=== PATIENT | male | born 1935 | race Caucasian/White ===

== ENCOUNTER → 2018-10-10 13:04 | Outpatient (CLI) | payer MEDICARE, OTHER, SELFPAY ==
[2018-10-14 20:12] LABS: PSA Free % 11 % (calc) (> 25); PSA, Total 10.6 ng/mL (< 4.1)
== END ==
PROVIDERS: PCP Family Medicine; Visit Provider Family Medicine
DX: R89.9 Unspecified abnormal finding in specimens from other organs, systems and tissues (principal)
CPT/HCPCS: 36415; 84153; 84154

== ENCOUNTER → 2019-04-21 11:08 | Outpatient (CLI) | payer MEDICARE, OTHER, SELFPAY ==
[2019-04-21 15:14] LABS: Appearance Urine UA SL CLOUDY; Bilirubin Urine UA NEGATIVE (NEGATIVE); Color Urine UA YELLOW; Glucose Urine UA NEGATIVE (Negative); Ketones Urine UA NEGATIVE (NEGATIVE); Leukocyte Esterase Urine UA 2+ (NEGATIVE); Nitrite Urine UA POSITIVE (Negative); Occult Blood Urine UA 1+ (Negative); Protein Urine UA TRACE (Negative); Urobilinogen Urine UA 0.2 E.U./dL (0.2); pH Urine UA 6.5 (4.5-8.0)
[2019-04-21 16:11] LABS: RBC Urine 1-5/HPF (0-5/HPF); WBC Urine 30-100/HPF (0-5/HPF)
[2019-04-21 16:12] LABS: Bacteria Urine Many (>30); Culture Indicated Urine Specimen Cultured
== END ==
PROVIDERS: Family Provider Family Medicine; PCP Family Medicine; Visit Provider Registered Nurse
DX: N30.90 Cystitis, unspecified without hematuria (principal)
CPT/HCPCS: 81001; 87077; 87086; 87186

== ENCOUNTER 2019-04-23 10:19 | Emergency (ER) | payer MEDICARE, OTHER, SELFPAY ==
[2019-04-23 10:23] VITALS: BP 158/62; PULSE 66; RESP 18; TEMP 36.9; O2SAT 99; BMI 31.4
--- NOTE | 2019-04-23 10:30 | ED.MALEGU ---
HPI - Male Genitourinary General Chief complaint: Urogenital-Male Stated complaint: Painful Urination Time Seen by Provider: 04/23/19 10:23 Source: patient Mode of arrival: ambulatory Limitations: no limitations History of Present Illness HPI Narrative: Patient comes emergency department complaining of pain in his penis when he urinates. Patient states that he was seen in his primary care physician's office 2 days ago, and found have a UTI. He was started on antibiotics for this, and states that the fever that he was having has resolved now. Patient states he does not feel sick in any other way, but he has been noticing over the last couple days that he has been having pain in his penile area. He states this is mainly when the urine comes out, and seems to be worse at night. Patient denies any gross blood in his urine and no passage of clots. Patient denies any history of kidney stones. He denies any back or flank pain at any time recently. Patient denies any abdominal pain. No nausea or vomiting. No further fevers. No diarrhea. Patient does note that sometimes he feels the urge to urinate, but that not much will come out. No other complaints at this time. Patient denies pain in his penis if he is not urinating. Related Data Home Medications Medication Instructions Recorded Confirmed Fish Oil (#FISH OIL) 1 iu PO Q DAY #0 11/28/11 04/21/19 ascorbic acid (vitamin C) 1,000 mg PO Q DAY #0 11/28/11 04/21/19 sildenafil [Viagra] 100 mg PO PRN #0 11/28/11 04/21/19 MULTIVITAMIN (Multiple Vitamins 1 tab PO Q DAY #0 07/30/12 04/21/19 Daily) nitroglycerin [Nitrostat] 0.4 mg SUBLINGUAL #0 11/02/17 04/21/19 amlodipine 10 mg PO DAILY 04/23/19 04/23/19 lisinopril 20 mg PO DAILY 04/23/19 04/23/19 rosuvastatin 2.5 mg PO DAILY 04/23/19 04/23/19 sertraline 50 mg PO DAILY 04/23/19 04/23/19 Previous Rx's Medication Instructions Recorded levothyroxine [Synthroid] 0.075 mg PO QAM #90 tab 09/20/18 ciprofloxacin 500 mg tablet 500 mg PO BID 7 Days #14 tab 04/21/19 Allergies Allergy/AdvReac Type Severity Reaction Status Date / Time No Known Drug Allergies Allergy Verified 04/23/19 10:23 Review of Systems Constitutional Denies chills, Denies fever(s), Denies lethargy and Denies weakness Eyes Denies change in vision, Denies eye discharge, Denies irritation and Denies loss of vision ENT Ears, Nose, Mouth, and Throat: Denies change in voice, Denies neck pain and Denies sore throat Cardiovascular Denies chest pain, Denies irregular heart rhythm, Denies lightheadedness, Denies palpitations, Denies dyspnea, Denies dyspnea on exertion and Denies orthopnea Respiratory Denies cough, Denies dyspnea, Denies dyspnea on exertion and Denies wheezing Gastrointestinal Gastrointestinal: Denies abdominal pain, Denies change in bowel habits, Denies diarrhea, Denies nausea and Denies vomiting Genitourinary Denies hematuria, Denies flank pain, Denies urinary incontinence and Denies urinary urgency Comments: Dysuria Musculoskeletal Denies neck pain Integumentary/Breasts Denies pruritus, Denies erythema, Denies rash and Denies wounds Neurologic Denies confusion, Denies loss of vision and Denies weakness Psychiatric Denies anxiety, Denies confusion, Denies depression, Denies homicidal ideation and Denies suicidal ideation Endocrine Denies palpitations Hematologic/Lymphatic Denies easy bruising Allergic/Immunologic Denies wheezing REPLACED BY [facility] Medical History Abdominal pain, acute, right lower quadrant (Acute) Hypertension (Chronic 11/28/11) Hyperlipidemia (Chronic 11/28/11) Hypothyroidism (Chronic 02/24/13) Surgical History No pertinent past surgical history (Acute) Family History (Updated 02/02/15 @ 00:00 by Conversion Provider) Father Diabetes mellitus Heart disease Hypertension High cholesterol Social History Smoking Status: Former smoker alcohol intake: current substance use type: does not use Family History (Updated 02/02/15 @ 00:00 by Conversion Provider) Father Diabetes mellitus Heart disease Hypertension High cholesterol Social History Smoking Status: Former smoker alcohol intake: current substance use type: does not use Exam Initial Vital Signs Initial Vital Signs: Vital Signs Temperature 98.5 F 04/23/19 10:23 Pulse Rate 66 04/23/19 10:23 Respiratory Rate 18 04/23/19 10:23 Blood Pressure 158/62 H 04/23/19 10:23 Pulse Oximetry 99 04/23/19 10:23 Const General: cooperative and well developed Nutritional Appearance: well nourished Orientation: alert, awake, oriented x3 and not confused [facility] Head: normocephalic and atraumatic Ears: external ears normal Nose: external nose normal and No nasal discharge Face and sinus: face symmetric and No dry mucous membranes Mouth: oral mucosae normal and moist mucous membranes Teeth and gingiva: dentition normal Eyes General: appearance normal, both eyes and all related structures Eyelids: eyelids normal Conjunctivae: conjunctivae normal Sclera: sclerae normal Pupils: PERRL EOM: EOM intact bilaterally Neck Neck: normal visual inspection, trachea midline, No lymphadenopathy, No midline deformity and No JVD Lymphatic: No lymphedema Chest Chest: normal inspection of the chest Resp Effort & Inspection: normal respiratory effort, able to speak in complete sentences, no respiratory distress and no use of accessory muscles Auscultation: clear to auscultation bilaterally, no rales, no rhonchi and no wheezes Cardio Rate: regular rate Rhythm: regular rhythm Heart Sounds: no click, no gallops, no murmurs and no rubs Pulses: normal peripheral pulses GI Inspection: non-distended Palpation: soft, no hepatosplenomegaly, No guarding, No pulsatile mass and No tender Auscultation: normal bowel sounds Back/Spine/Pelvis Back: No CVA tenderness Cervical Spine: cervical ROM normal and No pain with cervical ROM Thoracic/Lumbar Spine: thoracic and lumbar spine normal to inspection Skin General: no rashes or lesions noted, No jaundice and No petechiae Neuro General: alert, oriented x3, gait normal and no focal motor deficits Speech: speech normal Extrem General: full ROM, no clubbing, cyanosis or edema, no pedal edema and no calf tenderness Psych Appearance: well kempt Mental Status: mental status grossly normal Attitude: cooperative Thought Content: normal and suicidality Judgment: judgment good Course Course Narrative: Patient was worked up with urinalysis and CT of the abdomen and pelvis. Urine dip was improved from the patient's urinalysis on the , and CT was unremarkable, other than mild perinephric inflammation, suggestive of the patient's UTI. I reviewed the patient's urine culture and sensitivities, and found that the E coli that grew was sensitive to the ciprofloxacin the patient is on. I have advised patient to continue taking this, as directed. I am starting him on Pyridium to help with his dysuria. He may follow up with his primary care physician, as needed. We have discussed the usual indications for return. Orders Ordered: ED Orders 04/23/19 10:48 CT kidney ureter bladder (KUB) Stat 04/23/19 10:57 Urinalysis and Microscopic Stat Discontinued Medications Phenazopyridine HCl (Pyridium) 200 mg PO NOW ONE Stop: 04/23/19 11:33 Vital Signs - 8 hr 04/23/19 10:23 Temperature 98.5 F Pulse Rate 66 Respiratory Rate 18 Blood Pressure 158/62 H Pulse Oximetry 99 MDM - Male Genitourinary Medical Records Attestation: I reviewed the patient's medical records. Lab Data Attestation: I reviewed the patient's lab results. Urine Dip Bedside Urine Glucose Negative Bedside Urine Bilirubin - Negative Bedside Urine Ketone - Negative Urine Specific Noel 1.015 Bedside Urine Occult Blood - Negative Bedside Urine pH 6 Bedside Urine Protein + 30 Bedside Urine Urobilinogen +/- 1mg Bedside Urine Nitrite - Negative Bedside Urine Leukocytes +/- [address] scan - abdomen: Radiologist's impression: PROCEDURE: CT KIDNEY URETER BLADDER (KUB) INDICATIONS: urinary obstruction/pain, despite abx TECHNIQUE: Noncontrast 5 mm thick sections acquired from the diaphragms to the symphysis. 5 mm thick coronal and sagittal reformats were then performed. For radiation dose reduction, the following was used: automated exposure control, adjustment of mA and/or kV according to patient size. COMPARISON: [facility], CT, ABDOMEN/PELVIS WITH CONTRAST, 09/28/2014, 11:34. [facility], [place], ABDOMEN LIMITED, 09/28/2014, 13:02. [facility], CT, ABDOMEN/PELVIS WITH CONTRAST, 07/12/2015, 15:38. FINDINGS: Image quality: Excellent. Lung bases: Lung bases are clear. Heart size is normal. Urinary system: The kidneys demonstrate no nephrolithiasis or hydronephrosis. There is mild nonspecific perinephric and periureteral fat stranding bilaterally. Both ureters appear non-dilated throughout their expected courses. Bladder wall thickness is normal; no calcified bladder stones. There is mild stranding along the bladder wall. The prostate is mildly enlarged. Other solid organs: Noncontrast evaluation of the liver demonstrates no focal hepatic lesions. The gallbladder is partially distended with concentric intraluminal intermediate density suggestive of a noncalcified gallstone or impacted biliary sludge. This appears similar to the prior exam. There is scattered gallbladder wall calcification which is increased from the prior study. Pancreas is normal in contours. Spleen is normal in size. No adrenal nodules. Peritoneum and bowel: Unenhanced bowel loops demonstrate normal wall thickness and caliber. No pericecal inflammatory changes to suggest appendicitis. No free fluid or air. Nodes and vessels: No retroperitoneal or mesenteric adenopathy by size criteria. Aorta and inferior vena cava are normal in caliber. Abdominal wall: No ventral hernias. Pelvis: No free pelvic fluid. There is a small fat-containing left inguinal hernia. No inguinal adenopathy. Bones: No suspicious bony lesions. There are superiorly compression deformities of L2 and L4 vertebral bodies, new at L2 compared to the prior CT but of indeterminate acuity. This demonstrates approximately 50% loss of height centrally. At L4, there is approximately 30% loss of height. No retropulsed bony fragments. IMPRESSION: 1. No evidence of nephrolithiasis or hydronephrosis. 2. Mild perinephric, periureteral, and pericystic fat stranding a nonspecific but may reflect a urinary tract infection. Recommend correlation with urinalysis. No perinephric fluid collections. 3. Partially distended gallbladder with probable noncalcified gallstones or biliary sludge redemonstrated. 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 Recommend correlation clinically and consider surgical consultation. Dictated by: Ritesh Iraheta M.D. on 04/23/2019 at 10:47 Approved by: Ritesh Iraheta M.D. on 04/23/2019 at 11:07 Discharge Plan Departure Patient Disposition: Home Clinical Impression: Acute UTI, Dysuria Instructions: DI for Urinary Tract Infection (UTI) Activity Restrictions/Additional Instructions: Your urinalysis looks better today than it did [address] scan shows mild inflammation around the organs of urinary system, consistent with the urinary tract infection. There is no evidence of a kidney stone or other concerning findings. Your urine culture has been reviewed, and the antibiotics you are on are appropriate for the bacteria that is causing or infection. You most likely need more time on antibiotics. Please continue to take them, as directed. You may also take the Pyridium to help with the discomfort with urination. This will turn your urine orange, but many people find it helpful in controlling the discomfort. Prescriptions: No Action sildenafil [Viagra] 100 MG tablet 100 mg PO PRN Qty: 0 RF: 0 ascorbic acid (vitamin C) 1,000 mg Tablet 1,000 mg PO Q DAY Qty: 0 RF: 0 Fish Oil (#FISH OIL) 1 iu PO Q DAY Qty: 0 RF: 0 MULTIVITAMIN (Multiple Vitamins Daily) 1 tab PO Q DAY Qty: 0 RF: 0 nitroglycerin [Nitrostat] 0.4 MG tablet, sublingual 0.4 mg Sublingual Qty: 0 RF: 0 levothyroxine [Synthroid] 75 mcg tablet 0.075 mg PO QAM Qty: 90 RF: 2 ciprofloxacin HCl 500 mg tablet 500 mg PO BID 7 Days Qty: 14 RF: 0 lisinopril 20 mg tablet 20 mg PO DAILY RF: 0 amlodipine 10 mg tablet 10 mg PO DAILY RF: 0 rosuvastatin 5 mg tablet 2.5 mg PO DAILY RF: 0 sertraline 50 mg tablet 50 mg PO DAILY RF: 0 Referrals: Manav Eduardo MD [Primary Care Provider] -
--- NOTE | 2019-04-23 10:48 | DI.CT.S_ITS ---
PROCEDURE: CT KIDNEY URETER BLADDER (KUB) INDICATIONS: urinary obstruction/pain, despite abx TECHNIQUE: Noncontrast 5 mm thick sections acquired from the diaphragms to the symphysis. 5 mm thick coronal and sagittal reformats were then performed. For radiation dose reduction, the following was used: automated exposure control, adjustment of mA and/or kV according to patient size. COMPARISON: [facility], CT, ABDOMEN/PELVIS WITH CONTRAST, 09/28/2014, 11:34. [facility], [place], ABDOMEN LIMITED, 09/28/2014, 13:02. [facility], CT, ABDOMEN/PELVIS WITH CONTRAST, 07/12/2015, 15:38. FINDINGS: Image quality: Excellent. Lung bases: Lung bases are clear. Heart size is normal. Urinary system: The kidneys demonstrate no nephrolithiasis or hydronephrosis. There is mild nonspecific perinephric and periureteral fat stranding bilaterally. Both ureters appear non-dilated throughout their expected courses. Bladder wall thickness is normal; no calcified bladder stones. There is mild stranding along the bladder wall. The prostate is mildly enlarged. Other solid organs: Noncontrast evaluation of the liver demonstrates no focal hepatic lesions. The gallbladder is partially distended with concentric intraluminal intermediate density suggestive of a noncalcified gallstone or impacted biliary sludge. This appears similar to the prior exam. There is scattered gallbladder wall calcification which is increased from the prior study. Pancreas is normal in contours. Spleen is normal in size. No adrenal nodules. Peritoneum and bowel: Unenhanced bowel loops demonstrate normal wall thickness and caliber. No pericecal inflammatory changes to suggest appendicitis. No free fluid or air. Nodes and vessels: No retroperitoneal or mesenteric adenopathy by size criteria. Aorta and inferior vena cava are normal in caliber. Abdominal wall: No ventral hernias. Pelvis: No free pelvic fluid. There is a small fat-containing left inguinal hernia. No inguinal adenopathy. Bones: No suspicious bony lesions. There are superiorly compression deformities of L2 and L4 vertebral bodies, new at L2 compared to the prior CT but of indeterminate acuity. This demonstrates approximately 50% loss of height centrally. At L4, there is approximately 30% loss of height. No retropulsed bony fragments. IMPRESSION: 1. No evidence of nephrolithiasis or hydronephrosis. 2. Mild perinephric, periureteral, and pericystic fat stranding a nonspecific but may reflect a urinary tract infection. Recommend correlation with urinalysis. No perinephric fluid collections. 3. Partially distended gallbladder with probable noncalcified gallstones or biliary sludge redemonstrated. 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 Recommend correlation clinically and consider surgical consultation. Dictated by: Ritesh Iraheta M.D. on 04/23/2019 at 10:47 Approved by: Ritesh Iraheta M.D. on 04/23/2019 at 11:07
[2019-04-23] MEDS: PHENAZOPYRIDINE 100 MG TABLET 200 MG PO (11:44)
[2019-04-23 11:46] VITALS: BP 138/62; PULSE 57; O2SAT 100
== END 2019-04-23 12:29 | disposition home or self-care (01) ==
PROVIDERS: Emergency Provider Emergency Medicine; Family Provider Family Medicine; PCP Family Medicine
DX: N39.0 Urinary tract infection, site not specified (principal); R30.0 Dysuria
CPT/HCPCS: 51798; 74176; 81003; 99283; 99284

== ENCOUNTER 2019-04-24 19:10 | Emergency (ER) | payer MEDICARE, OTHER, SELFPAY ==
[2019-04-24 19:24] VITALS: BP 178/78; PULSE 75; RESP 15; TEMP 35.4; O2SAT 95; BMI 31.4
--- NOTE | 2019-04-24 21:03 | ED.MALEGU ---
HPI - Male Genitourinary General Chief complaint: Urogenital-Male Stated complaint: UTI, UNABLE TO URINATE, PAIN Time Seen by Provider: 04/24/19 21:03 Source: patient Mode of arrival: ambulatory Limitations: no limitations History of Present Illness HPI Narrative: The patient was treated in clinic 4 days ago for UTI. He was started on Cipro 250 mg b.i.d. for 7 days. He has since been to the ER. The urine culture shows E coli sensitive to the Cipro, and others. He has had CT that shows no ominous disease process, perhaps consistent with urinary infection. He had a bladder scan yesterday that was reassuring. He returns complaining and urgency, frequency and dysuria. Initiate fever, the fever has ceased. He denies abdominal pain, nausea or vomiting. He has no back pain. Related Data Home Medications Medication Instructions Recorded Confirmed Fish Oil (#FISH OIL) 1 iu PO Q DAY #0 11/28/11 04/21/19 ascorbic acid (vitamin C) 1,000 mg PO Q DAY #0 11/28/11 04/21/19 sildenafil [Viagra] 100 mg PO PRN #0 11/28/11 04/21/19 MULTIVITAMIN (Multiple Vitamins 1 tab PO Q DAY #0 07/30/12 04/21/19 Daily) nitroglycerin [Nitrostat] 0.4 mg SUBLINGUAL #0 11/02/17 04/21/19 amlodipine 10 mg PO DAILY 04/23/19 04/23/19 lisinopril 20 mg PO DAILY 04/23/19 04/23/19 rosuvastatin 2.5 mg PO DAILY 04/23/19 04/23/19 sertraline 50 mg PO DAILY 04/23/19 04/23/19 Previous Rx's Medication Instructions Recorded levothyroxine [Synthroid] 0.075 mg PO QAM #90 tab 09/20/18 ciprofloxacin 500 mg tablet 500 mg PO BID 7 Days #14 tab 04/21/19 ciprofloxacin HCl [Cipro] 250 mg PO Q12H #28 tab 04/25/19 tamsulosin [Flomax] 0.4 mg PO DAILY #30 cap 04/25/19 tramadol 50 mg PO Q6H PRN #20 tab 04/25/19 Allergies Allergy/AdvReac Type Severity Reaction Status Date / Time No Known Drug Allergies Allergy Verified 04/24/19 19:24 Review of Systems Review of Systems ROS Unobtainable: All systems reviewed & are unremarkable except as noted in HPI and below Constitutional Denies body ache(s), Denies fatigue and Denies fever(s) ENT Comments: No ENT complaints. Cardiovascular Denies chest pain and Denies dyspnea Respiratory Denies cough and Denies dyspnea Gastrointestinal Gastrointestinal: Denies abdominal pain, Denies diarrhea, Denies nausea and Denies vomiting Genitourinary Denies hematuria, Reports difficulty urinating, Denies scrotal swelling, Denies testicular mass, Denies testicular pain, Reports urinary frequency and Reports urinary urgency Musculoskeletal Comments: No back pain. Integumentary/Breasts Denies rash and Denies sores Neurologic Denies confusion Psychiatric Denies anxiety and Denies confusion Endocrine Denies fatigue [facility] Medical History Abdominal pain, acute, right lower quadrant (Acute) Hypertension (Chronic 11/28/11) Hyperlipidemia (Chronic 11/28/11) Hypothyroidism (Chronic 02/24/13) Surgical History No pertinent past surgical history (Acute) Family History (Updated 02/02/15 @ 00:00 by Conversion Provider) Father Diabetes mellitus Heart disease Hypertension High cholesterol Social History Smoking Status: Former smoker alcohol intake: current substance use type: does not use Family History Father Diabetes mellitus Heart disease Hypertension High cholesterol Social History Smoking Status: Former smoker alcohol intake: current substance use type: does not use Exam Initial Vital Signs Initial Vital Signs: Vital Signs Temperature 95.7 F L 04/24/19 19:24 Pulse Rate 75 04/24/19 19:24 Respiratory Rate 15 04/24/19 19:24 Blood Pressure 178/78 H 04/24/19 19:24 Pulse Oximetry 95 04/24/19 19:24 Const General: cooperative and well developed Nutritional Appearance: well nourished Orientation: alert, awake, oriented x3 and not confused HENMT Head: normocephalic and atraumatic Face and sinus: sinuses nontender, face symmetric, no sinus tenderness and No dry mucous membranes Mouth: oral mucosae normal and moist mucous membranes Teeth and gingiva: dentition normal Throat: tonsils normal and uvula midline Resp Effort & Inspection: normal respiratory effort and able to speak in complete sentences Auscultation: clear to auscultation bilaterally, no rales, no rhonchi and no wheezes Cardio Rate: regular rate Rhythm: regular rhythm Heart Sounds: S1 normal, S2 normal, no click, no gallops, no murmurs and no rubs Pulses: normal peripheral pulses GI Inspection: non-distended Palpation: soft and no hepatosplenomegaly Auscultation: normal bowel sounds Penis: normal penis Meatus: meatus normal Scrotum: scrotum normal Skin General: no rashes or lesions noted, No jaundice and No petechiae Course Course Narrative: The patient has ongoing pyuria and his UA, despite the use of Cipro that is sensitive to the UTI. He has demonstrated urgency and frequency here in the ER. Bladder scan reveals 400 mL retention. A Bernabe has been placed, the bladder pressures alleviated. Cipro will be extended to 3 weeks total. He will be started on Flomax. Tramadol will be given her pain. He is advised to follow up with his urologist. Orders Ordered: ED Orders 04/24/19 22:00 Urine Microscopic Stat Discontinued Medications Morphine Sulfate (Morphine) 4 mg IM NOW ONE Stop: 04/25/19 01:12 Tamsulosin HCl (Flomax) 0.4 mg PO NOW ONE Stop: 04/25/19 01:12 Tramadol HCl (Ultram 50mg Prepack) 1 bottle MISC SEEINSTR ONE Stop: 04/25/19 01:13 Vital Signs - 8 hr 04/24/19 19:24 04/24/19 21:22 04/24/19 22:41 Temperature 95.7 F L Pulse Rate 75 64 63 Respiratory Rate 15 16 16 Blood Pressure 178/78 H Blood Pressure [Left Arm] 150/67 H 145/68 H Pulse Oximetry 95 97 97 04/25/19 01:03 Temperature 97.2 F L Pulse Rate 63 Respiratory Rate 19 Blood Pressure Blood Pressure [Left Arm] 169/67 H Pulse Oximetry 97 MDM - Male Genitourinary Lab Data Lab Results 04/24/19 04/24/19 Range/Units 19:21 22:00 Urine Color Cancelled Urine Appearance Cancelled Urine pH Cancelled Ur Specific Fabius Cancelled Urine Protein Cancelled Urine Glucose (UA) Cancelled Urine Ketones Cancelled Urine Occult Blood Cancelled Urine Nitrate Cancelled Urine Bilirubin Cancelled Urine Urobilinogen Cancelled Ur Leukocyte Esterase Cancelled Urine RBC Cancelled 0-1/hpf Urine WBC Cancelled 0-1/hpf Ur Squamous Epith Cells Cancelled Ur Transition Epith Cell Cancelled Ur Renal Epithelial Cell Cancelled Calcium Oxalate Crystal Cancelled Uric Acid Crystals Cancelled Triple Phos Crystals Cancelled Other Crystals Cancelled Amorphous Sediment Cancelled Urine Bacteria Cancelled None seen Hyaline Casts Cancelled Granular Casts Cancelled RBC Casts Cancelled WBC Casts Cancelled Other Casts Cancelled Urine Mucus Cancelled Urine Trichomonas Cancelled Urine Yeast Cancelled Urine Sperm Cancelled Ur Culture Indicated? Cancelled Cult not indicated Micro UA Comment Cancelled * Discharge Plan Departure Patient Disposition: Home Clinical Impression: Acute prostatitis, Acute urinary retention Instructions: Prostatitis Activity Restrictions/Additional Instructions: Cipro 250 mg 2 times daily for 3 weeks. Flomax 1 pill daily, to help relax the prostate. Tramadol every 6 hr as needed for pain. Drink plenty of fluids. Call your urologist to arrange an appointment. Return to the ER as needed. Prescriptions: New ciprofloxacin HCl [Cipro] 250 mg tablet 250 mg PO Q12H Qty: 28 RF: 0 tramadol 50 mg tablet 50 mg PO Q6H PRN (Reason: pain) Qty: 20 RF: 0 tamsulosin [Flomax] 0.4 mg capsule 0.4 mg PO DAILY Qty: 30 RF: 0 No Action sildenafil [Viagra] 100 MG tablet 100 mg PO PRN Qty: 0 RF: 0 ascorbic acid (vitamin C) 1,000 mg Tablet 1,000 mg PO Q DAY Qty: 0 RF: 0 Fish Oil (#FISH OIL) 1 iu PO Q DAY Qty: 0 RF: 0 MULTIVITAMIN (Multiple Vitamins Daily) 1 tab PO Q DAY Qty: 0 RF: 0 nitroglycerin [Nitrostat] 0.4 MG tablet, sublingual 0.4 mg Sublingual Qty: 0 RF: 0 levothyroxine [Synthroid] 75 mcg tablet 0.075 mg PO QAM Qty: 90 RF: 2 ciprofloxacin HCl 500 mg tablet 500 mg PO BID 7 Days Qty: 14 RF: 0 lisinopril 20 mg tablet 20 mg PO DAILY RF: 0 amlodipine 10 mg tablet 10 mg PO DAILY RF: 0 rosuvastatin 5 mg tablet 2.5 mg PO DAILY RF: 0 sertraline 50 mg tablet 50 mg PO DAILY RF: 0 Referrals: Manav Eduardo MD [Primary Care Provider] -
[2019-04-24 21:22] VITALS: BP 150/67; PULSE 64; RESP 16; O2SAT 97
[2019-04-24 22:20] LABS: Bacteria Urine None Seen
[2019-04-24 22:41] VITALS: BP 145/68; PULSE 63; RESP 16; O2SAT 97
--- NOTE | 2019-04-24 22:54 | PC.NURSE ---
patient and updated on plan of care. Advised of wait time. Apologized for long wait. Water given. Awaiting disposition.
[2019-04-24 23:18] LABS: Culture Indicated Urine Cult Not Indicated; RBC Urine 0-1/HPF (0-5/HPF); WBC Urine 0-1/HPF (0-5/HPF)
[2019-04-25 01:03] VITALS: BP 169/67; PULSE 63; RESP 19; TEMP 36.2; O2SAT 97
[2019-04-25] MEDS: TRAMADOL 50 MG PREPACK 1 BOTTLE MISC (01:34)
[2019-04-25] MEDS: MORPHINE 4 MG/ML INJ IM (01:34)
[2019-04-25] MEDS: TAMSULOSIN 0.4 MG CAPSULE PO (01:34)
[2019-04-25 01:51] VITALS: BP 165/79; PULSE 63; O2SAT 96
== END 2019-04-25 01:52 | disposition home or self-care (01) ==
PROVIDERS: Emergency Provider Emergency Medicine; Family Provider Family Medicine; PCP Family Medicine
DX: N41.0 Acute prostatitis (principal); R33.8 Other retention of urine
CPT/HCPCS: 51798; 81015; 96372; 99283; J2270

== ENCOUNTER → 2019-06-02 09:13 | Outpatient (CLI) | payer MEDICARE, OTHER, SELFPAY ==
[2019-06-02 10:30] LABS: Add Manual Diff / Slide Review NO; Basophils Absolute Auto 100 /uL (0-100); Basophils Percent Auto 1.1 % (0-2); Eosinophils Absolute Auto 400 /uL (0-450); Eosinophils Percent Auto 4.5 % (2-4); Hematocrit 43.6 % (41-53); Hemoglobin 14.5 g/dL (13.5-17.5); Lymphocytes Absolute Auto 2900 /uL (1100-4500); Lymphocytes Percent Auto 32.7 % (25-40); Mean Corpuscular HGB Conc 33.2 % (30-36); Mean Corpuscular Hemoglobin 29.2 PG (26-34); Mean Corpuscular Volume 88.1 fL (80-100); Monocytes Absolute Auto 700 /uL (0-900); Monocytes Percent Auto 7.9 % (3-14); Neutrophils Absolute Auto 4800 /uL (1500-7000); Neutrophils Percent Auto 53.8 % (50-75); Platelet Count 248 X10^3/uL (150-400); Red Blood Cell Count 4.95 X10^6/uL (4.5-5.9); Red Cell Distribution Width 14.6 % (11.6-14.8); White Blood Cell Count 8.9 X10^3/uL (4.5-11.0)
[2019-06-02 10:40] LABS: Alanine Aminotransferase 11 IU/L (21-72); Albumin Globulin Ratio 1.2 (1.0-2.8); Alkaline Phosphatase 63 U/L (38-126); Aspartate Aminotransferase 21 IU/L (17-59); BUN Creatinine Ratio 15.6 (6-22); Bilirubin Total 0.5 mg/dL (0.2-1.3); Blood Urea Nitrogen 14 mg/dL (9-20); Calcium 9.7 mg/dL (8.4-10.2); Carbon Dioxide 28 mmol/L (22-32); Chloride 103 mmol/L (98-107); Cholesterol 147 mg/dL (140-199); Estimated Glomerular Filt Rate > 60.0 mL/min (>60); Globulin 3.4 g/dL (1.7-4.1); Glucose 91 mg/dL (80-110); HDL Cholesterol 50 mg/dL (40-60); HEMOLYSIS < 15 (0-50); LDL Cholesterol Calculated 72 mg/dL (<100); Potassium 4.2 mmol/L (3.4-5.1); Sodium 137 mmol/L (137-145); Total Protein 7.4 g/dL (6.3-8.2); Triglycerides 127 mg/dL (35-150)
[2019-06-02 11:07] LABS: Thyroid Stimulating Hormone 0.19 uIU/mL (0.47-4.68)
== END ==
PROVIDERS: PCP Family Medicine; Visit Provider Family Medicine
DX: E03.9 Hypothyroidism, unspecified (principal); E78.5 Hyperlipidemia, unspecified; I10 Essential (primary) hypertension
CPT/HCPCS: 36415; 80053; 80061; 84443; 85025

== ENCOUNTER → 2019-07-02 09:52 | Outpatient (CLI) | payer MEDICARE, OTHER, SELFPAY ==
--- NOTE | 2019-07-02 09:54 | DI.RAD.S_ITS ---
PROCEDURE: XR CHEST 2V INDICATIONS: upper ab pain TECHNIQUE: 2 views of the chest were acquired. COMPARISON: [facility], CR, XR CHEST 1 VIEW, 10/27/2017, 3:11. [facility], CR, CHEST 2 VIEW, 03/31/2008, 16:47. FINDINGS: Surgical changes and devices: None. Lungs and pleura: Lungs are clear. No pleural effusions or pneumothorax. Mediastinum: Mediastinal contours are normal. Heart size is normal. Bones and chest wall: No suspicious bony abnormalities. Soft tissues appear unremarkable. No evidence for subdiaphragmatic free air. IMPRESSION: Stable examination of the chest without acute cardiopulmonary abnormalities. Dictated by: Jamey Monterroso M.D. on 07/02/2019 at 13:02 Approved by: Jamey Monterroso M.D. on 07/02/2019 at 13:05
[2019-07-02 10:30] LABS: Add Manual Diff / Slide Review NO; Basophils Absolute Auto 100 /uL (0-100); Basophils Percent Auto 1.1 % (0-2); Eosinophils Absolute Auto 400 /uL (0-450); Eosinophils Percent Auto 4.6 % (2-4); Hematocrit 44.7 % (41-53); Lymphocytes Absolute Auto 3000 /uL (1100-4500); Lymphocytes Percent Auto 33.1 % (25-40); Mean Corpuscular HGB Conc 33.6 % (30-36); Mean Corpuscular Hemoglobin 29.5 PG (26-34); Mean Corpuscular Volume 87.8 fL (80-100); Monocytes Absolute Auto 700 /uL (0-900); Monocytes Percent Auto 7.6 % (3-14); Neutrophils Absolute Auto 4800 /uL (1500-7000); Neutrophils Percent Auto 53.6 % (50-75); Platelet Count 235 X10^3/uL (150-400); White Blood Cell Count 8.9 X10^3/uL (4.5-11.0)
[2019-07-02 11:00] LABS: Alanine Aminotransferase 24 IU/L (21-72); Albumin Globulin Ratio 1.3 (1.0-2.8); Alkaline Phosphatase 62 U/L (38-126); Aspartate Aminotransferase 23 IU/L (17-59); Bilirubin Total 0.5 mg/dL (0.2-1.3); Blood Urea Nitrogen 22 mg/dL (9-20); Calcium 9.9 mg/dL (8.4-10.2); Carbon Dioxide 27 mmol/L (22-32); Chloride 105 mmol/L (98-107); Estimated Glomerular Filt Rate > 60.0 mL/min (>60); Globulin 3.1 g/dL (1.7-4.1); Glucose 106 mg/dL (80-110); HEMOLYSIS < 15 (0-50); Potassium 4.1 mmol/L (3.4-5.1); Sodium 142 mmol/L (137-145); Total Protein 7.1 g/dL (6.3-8.2)
[2019-07-02 11:29] LABS: Thyroid Stimulating Hormone 0.49 uIU/mL (0.47-4.68)
== END ==
PROVIDERS: PCP Family Medicine; Visit Provider Family Medicine
DX: R10.10 Upper abdominal pain, unspecified (principal); E03.9 Hypothyroidism, unspecified
CPT/HCPCS: 36415; 71046; 80053; 84443; 85025

== ENCOUNTER → 2019-07-08 12:13 | Outpatient (CLI) | payer MEDICARE, OTHER, SELFPAY ==
--- NOTE | 2019-07-08 12:47 | DI.CT.S_ITS ---
PROCEDURE: CT CHEST WO CON INDICATIONS: upper abdominal pain, chest xray was nromal TECHNIQUE: Noncontrast 5 mm thick sections acquired from the pulmonary apices to the posterior costophrenic angles. 1 mm lung window, 5 mm thick coronal and sagittal and 7 mm axial MIP reformats were then acquired. For radiation dose reduction, the following was used: automated exposure control, adjustment of mA and/or kV according to patient size. COMPARISON: [facility], CT, ABDOMEN/PELVIS WITH CONTRAST, 09/28/2014, 11:34. [facility], CR, XR CHEST 2V, 07/02/2019, 10:02. FINDINGS: Image quality: Excellent. Lungs and pleura: No acute consolidation. Scattered subsegmental atelectasis and/or scarring. No pleural effusion.No pneumothorax. Nonspecific 2 mm nodules in the left upper lobe subpleural region on image 93 series 3. Additional sub-5 mm ill-defined nodules present in the right upper lobe on image 101 series 3. Mediastinum: Heart size is normal. Coronary artery calcifications are present. No pericardial effusion. No mediastinal adenopathy by size criteria. Thoracic aorta and central pulmonary arteries are normal in size. Esophagus is normal in caliber. No hiatal hernia. Bones and chest wall: No suspicious bony lesions. No vertebral body compression fractures. No axillary or supraclavicular adenopathy by size criteria. Thyroid gland unremarkable. Multilevel spondylosis Abdomen: Large minimally calcified gallstone/s, versus chronic gallbladder wall thickening. Overall appearance unchanged since 09/28/14. IMPRESSION: Multiple sub-4 mm pulmonary nodules involving both upper lobes, technically indeterminate in the absence of relevant comparison studies. Recommend followup with noncontrast chest CT in one year to ensure long-term stability. Coronary artery disease. Additional chronic and incidental findings as above. Dictated by: Gorge Patel M.D. on 07/08/2019 at 16:12 Approved by: Gorge Patel M.D. on 07/08/2019 at 16:18
== END ==
PROVIDERS: PCP Family Medicine; Visit Provider Family Medicine
DX: R10.10 Upper abdominal pain, unspecified (principal); R93.89 Abnormal findings on diagnostic imaging of other specified body structures; R91.8 Other nonspecific abnormal finding of lung field; I25.10 Atherosclerotic heart disease of native coronary artery without angina pectoris
CPT/HCPCS: 71250

== ENCOUNTER → 2019-08-11 15:25 | Outpatient (CLI) | payer MEDICARE, OTHER, SELFPAY ==
--- NOTE | 2019-08-11 15:27 | DI.MRI.S_ITS ---
PROCEDURE: MR ABDOMEN WO/W CON INDICATIONS: Upper right sided abdominal pain TECHNIQUE: Coronal HASTE, axial 2D FLASH in- and [id number]; axial breath-hold T2 FSE. Dynamic axial VIBE during the administration of contrast; post-contrast coronal VIBE or 2D FLASH with fat saturation from the hepatic dome to the iliac crests. Optional diffusion weighted imaging and ADC may be performed. COMPARISON: Chest CT 07/08/2019, limited abdominal ultrasound 09/28/2014. FINDINGS: Image quality: Excellent. Lung bases: No basal pleural effusions. Heart size is normal. Solid organs: Liver is normal in size and enhancement. Construct morphology. No significant steatosis. Gallbladder is nondistended. Signal void related to large gallstone filling the gallbladder lumen, (3/15). On recent chest CT the gallstone is only partially calcified. No pericholecystic fluid. No mass. No suspicious enhancement or restricted diffusion. Cystic duct is within normal limits. Biliary system is non dilated. CBD measures 6 mm. Pancreas is normal in morphology. No pancreatic ductal dilatation. Spleen is normal in size and enhancement. No adrenal nodules. Both kidneys demonstrate normal size and enhancement, without hydronephrosis. Small simple renal cysts. No solid mass or enhancing lesion. Nodes and vessels: No retroperitoneal or mesenteric adenopathy by size criteria. Aorta and inferior vena cava are normal in size. Moderate atherosclerotic plaque. Bowel and peritoneum: Unenhanced bowel loops are normal in caliber. No free fluid. Bones and soft tissues: No ventral hernias. Bone marrow is normal in overall signal. IMPRESSION: 1. Large gallstone filling the lumen of the gallbladder. No acute cholecystitis. No gallbladder mass. 2. No biliary ductal dilatation. Dictated by: Trevon James M.D. on 08/11/2019 at 17:56 Approved by: Trevon James M.D. on 08/11/2019 at 18:06
== END ==
PROVIDERS: Family Provider Family Medicine; PCP Family Medicine; Visit Provider Surgery
DX: R10.11 Right upper quadrant pain (principal); K80.20 Calculus of gallbladder without cholecystitis without obstruction
CPT/HCPCS: 74183; A9579

== ENCOUNTER 2019-08-25 08:11 | Day surgery (SDC) | payer MEDICARE, OTHER, SELFPAY ==
[2019-08-25] VITALS (12 sets, daily range): BP systolic 92–169; BP diastolic 51–79; PULSE 42–50; RESP 8–20; TEMP 36.1–36.5; O2SAT 92–99; BMI 30.4
[2019-08-25] MEDS: SODIUM CHLORIDE 0.9% 1,000 ML 200 ML IV (08:45)
--- NOTE | 2019-08-25 08:55 | PM.PREOP ---
Pre-operative Note Interval Note History & Physical reviewed/Exam performed by Physician: Yes Changes to H&P: No ASA Class (for procedural sedation): III
[2019-08-25] MEDS: LIDOCAINE 4% SOLN 50 ML 20 ML TOP (09:13)
[2019-08-25] MEDS: MIDAZOLAM 5 MG/5 ML VIAL IV (09:14)
[2019-08-25] MEDS: fentaNYL 250 MCG/5 ML INJ IV (09:15)
--- NOTE | 2019-08-28 15:10 | PM.OP.ENDO ---
Operative Date/Time/Diagnoses Date of procedure: 08/25/19 Time of procedure: 15:10 Pre-op diagnosis: Abdominal pain history of peptic ulcer Post-op diagnosis: same Procedure & Clinicians Study performed: Esophagoduodenoscopy Same procedure as scheduled: Yes Indications: 83-year-old man with history peptic ulcer disease and acute on chronic epigastric pain presents for diagnosic EGD Surgeon: Krish Perez Procedure Notes SCOAP/Timeout: Perform Procedure in detail: Patient placed in left lateral decubitus position. Time out was performed. Procedural sedation was administered with Versed and Fentanyl. A bite block was placed. the scope was inserted into the mouth and advanced through the esophagus and into the stomach. The pylorus was intubated and the duodenum was normal. The scope was retroflexed within the stomach and there was a hiatal hernia. No ulcers, or gastritis. The scope was withdrawn into the esophagus the Z line was seen at 35 cm from the incisions. There was no mccormick's esophagitis or masses or strictures. Stomach was desufflated and scope removed. Patient tolerated procedure well. Findings: hiatal hernia Specimen(s): none sent Complications: none Impression: Adult Post-procedure Recommendations: Reflux diet Disposition: same day surgery
== END 2019-08-25 11:12 | disposition home or self-care (01) ==
PROVIDERS: Family Provider Family Medicine; PCP Family Medicine; Visit Provider Surgery
PROC: 0DJ08ZZ Inspection of Upper Intestinal Tract, Via Natural or Artificial Opening Endoscopic (ICD-10-PCS; CPT 43235; principal; 2019-08-25 09:15)
DX: R10.13 Epigastric pain (principal); K44.9 Diaphragmatic hernia without obstruction or gangrene; Z87.11 Personal history of peptic ulcer disease; Z87.891 Personal history of nicotine dependence; I10 Essential (primary) hypertension; E03.9 Hypothyroidism, unspecified; E78.5 Hyperlipidemia, unspecified
CPT/HCPCS: 43235; J2250; J3010

== ENCOUNTER → 2020-06-15 08:09 | Outpatient (CLI) | payer MEDICARE, OTHER, SELFPAY ==
[2020-06-15 10:17] LABS: Alanine Aminotransferase 24 IU/L (<50); Albumin 3.9 g/dL (3.5-5.0); Albumin Globulin Ratio 1.3 (1.0-2.8); Alkaline Phosphatase 57 U/L (38-126); Aspartate Aminotransferase 28 IU/L (17-59); BUN Creatinine Ratio 16.8 (6-22); Bilirubin Total 0.7 mg/dL (0.2-1.3); Blood Urea Nitrogen 19 mg/dL (9-20); Calcium 9.7 mg/dL (8.4-10.2); Carbon Dioxide 32 mmol/L (22-32); Chloride 102 mmol/L (98-107); Cholesterol 146 mg/dL (140-199); Estimated Glomerular Filt Rate > 60.0 mL/min (>60); Globulin 2.9 g/dL (1.7-4.1); Glucose 87 mg/dL (80-110); HDL Cholesterol 55 mg/dL (40-60); HEMOLYSIS < 15 (0-50); LDL Cholesterol Calculated 65 mg/dL (<100); Potassium 4.6 mmol/L (3.4-5.1); Sodium 136 mmol/L (137-145); Total Protein 6.8 g/dL (6.3-8.2); Triglycerides 132 mg/dL (35-150)
[2020-06-15 10:25] LABS: Add Manual Diff / Slide Review NO; Basophils Absolute Auto 100 /uL (0-100); Basophils Percent Auto 1.1 % (0-2); Eosinophils Absolute Auto 300 /uL (0-450); Eosinophils Percent Auto 3.8 % (2-4); Hemoglobin 14.9 g/dL (13.5-17.5); Lymphocytes Absolute Auto 2700 /uL (1100-4500); Lymphocytes Percent Auto 34.7 % (25-40); Mean Corpuscular Hemoglobin 29.9 PG (26-34); Mean Corpuscular Volume 90.4 fL (80-100); Monocytes Absolute Auto 600 /uL (0-900); Monocytes Percent Auto 8.1 % (3-14); Neutrophils Absolute Auto 4100 /uL (1500-7000); Neutrophils Percent Auto 52.3 % (50-75); Platelet Count 238 X10^3/uL (150-400); Red Blood Cell Count 4.98 X10^6/uL (4.5-5.9); Red Cell Distribution Width 13.5 % (11.6-14.8); White Blood Cell Count 7.9 X10^3/uL (4.5-11.0)
== END ==
PROVIDERS: Family Provider Family Medicine; PCP Family Medicine; Referring Provider Family Medicine; Visit Provider Family Medicine
DX: E03.9 Hypothyroidism, unspecified (principal); E78.5 Hyperlipidemia, unspecified; I10 Essential (primary) hypertension
CPT/HCPCS: 36415; 80053; 80061; 84443; 85025

== ENCOUNTER → 2020-08-30 11:27 | Outpatient (CLI) | payer MEDICARE, OTHER, SELFPAY ==
[2020-08-30 13:24] LABS: Thyroid Stimulating Hormone 4.18 uIU/mL (0.47-4.68)
== END ==
PROVIDERS: Family Provider Family Medicine; PCP Family Medicine; Referring Provider Family Medicine; Visit Provider Family Medicine
DX: E03.9 Hypothyroidism, unspecified (principal)
CPT/HCPCS: 36415; 84443